=== PATIENT | male | born 1950 | race Caucasian/White ===

== ENCOUNTER 2021-07-23 12:37 | Day surgery (SDC) | payer MEDICARE ==
[~2021-07-23] VITALS: Ht 172.7 cm; Wt 122.8 kg
[2021-07-23] MEDS ORDERED: CLON-364 PO (13:37)
[2021-07-23] MEDS ORDERED: CARB1TAB22 PO (13:37)
[2021-07-23] MEDS ORDERED: DIVA-61 PO (13:37)
[2021-07-23] MEDS ORDERED: ROSU20TA2 PO (13:37)
[2021-07-23] MEDS ORDERED: QUET300T2 PO (13:37)
[2021-07-23] MEDS ORDERED: MELO15TA24 PO (13:37)
[2021-07-23] MEDS ORDERED: DIVA-59 PO (13:37)
[2021-07-23] MEDS ORDERED: LEVO50TA5 PO (13:37)
[2021-07-23] MEDS ORDERED: TIZA4TAB2 PO (13:37)
[2021-07-23] MEDS ORDERED: METO25TA2 PO (13:37)
[2021-07-23 13:42] VITALS: BP 148/81
[2021-07-23] MEDS ORDERED: CHLORHEXIDINE 15 ML UDC ONE (13:53)
[2021-07-23] MEDS: LACTATED RINGERS 1,000 ML IV SCH ×2 (13:56→14:06)
[2021-07-23] MEDS ORDERED: CHLORHEXIDINE 15 ML UDC PO ONE (14:00)
[2021-07-23] MEDS ORDERED: SODIUM CHLORIDE 0.9% 1,000 ML IV SCH (14:00)
[2021-07-23] MEDS ORDERED: PROPOFOL 50 ML ONE (15:49)
[2021-07-23] MEDS ORDERED: MIDAZOLAM 1 MG/ML, 2ML IV PRN (16:30)
[2021-07-23] MEDS ORDERED: HYDROmorphone 1 MG/ML, 1ML INJ IVPush PRN (16:30)
[2021-07-23] MEDS ORDERED: FENTANYL PF 100 MCG/2ML IV PRN (16:30)
[2021-07-23] MEDS ORDERED: ALBUTEROL SULFATE 2.5 MG/3 ML NPPB PRN (16:30)
[2021-07-23] MEDS ORDERED: ACETAMINOPHEN 325 MG TABLET PO PRN (16:30)
[2021-07-23] MEDS ORDERED: LABETALOL 5MG/ML, 20ML IV PRN (16:30)
[2021-07-23] MEDS ORDERED: EPHEDRINE 50 MG/ML, 1ML IVPush PRN (16:30)
[2021-07-23] MEDS ORDERED: MEPERIDINE/PF 25MG/0.5ML IVPush PRN (16:30)
[2021-07-23] MEDS ORDERED: OXYcodone 5 MG/5 ML ORAL.SOL UDC PO PRN (16:30)
[2021-07-23] MEDS ORDERED: PROMETHAZINE 12.5 MG SUPP PR PRN (16:30)
[2021-07-23] MEDS ORDERED: DIPHENHYDRAMINE 50 MG/ML, 1ML IVPush PRN ×2 (16:30)
[2021-07-23] MEDS ORDERED: hydrALAzine 20 MG/ML, 1ML IV PRN (16:30)
[2021-07-23] MEDS ORDERED: DIAZEPAM 5 MG/ML, 2ML IVPush PRN (16:30)
[2021-07-23] MEDS ORDERED: PROMETHAZINE 25 MG/ML, 1ML IVPush PRN (16:30)
[2021-07-23] MEDS ORDERED: ONDANSETRON 2MG/ML, 2ML IVPush PRN (16:30)
== END 2021-07-23 17:25 | disposition home or self-care (01) ==
LOC: OUT 12:37
PROVIDERS: ATTEND Internal Medicine Gastroenterology
DX: R19.5 Other fecal abnormalities (principal); D12.3 Benign neoplasm of transverse colon; K57.30 Diverticulosis of large intestine without perforation or abscess without bleeding; K59.00 Constipation, unspecified; K63.89 Other specified diseases of intestine; E78.5 Hyperlipidemia, unspecified; G20 Parkinson's disease; E03.9 Hypothyroidism, unspecified; F41.9 Anxiety disorder, unspecified; E66.01 Morbid (severe) obesity due to excess calories; Z20.822 Contact with and (suspected) exposure to COVID-19; Z68.41 Body mass index [BMI] 40.0-44.9, adult; Z79.1 Long term (current) use of non-steroidal anti-inflammatories (NSAID); Z79.890 Hormone replacement therapy; Z79.899 Other long term (current) drug therapy; Z87.891 Personal history of nicotine dependence; Z99.81 Dependence on supplemental oxygen
CPT/HCPCS: 45385; 87635; 88305; 93005; J2704; J7120